=== PATIENT | male | born 1965 | race African-American/Black ===

== ENCOUNTER 2016-05-08 20:06 | Inpatient (IN) | payer OTHER ==
[2016-05-08 20:21] VITALS: BMI 26.4
--- NOTE | 2016-05-08 20:29 | PN ---
[facility] Progress Note Note: this 51 years old male with opioid,alcohol and cocaine dependence,htn,hepatitis c,nicotine dependence and postitive ppd admitted in detox [facility] 04/14/16 to 04/19/16 admitted in rehab [facility] 04/19/16 to 05/07/16 transferred to [facility] er for chest pain 0n 05/07/16 medically clear to return to rehab for continue treatment
[2016-05-08] MEDS ORDERED: IBUPROFEN 400 MG TABLET (FP) PO PRN (20:37)
[2016-05-08] MEDS ORDERED: guaiFENesin/D-METHORPHAN HB 10 ML UNIT-DOSE CUPS PO PRN (20:37)
[2016-05-08] MEDS ORDERED: MAGNESIUM HYDROX 2400MG/30ML ORAL SUSPENSION 30 ML CUP PO PRN (20:37)
[2016-05-08] MEDS ORDERED: MAG HYDROX/AL HYDROX/SIMETH 30 ML UNIT-DOSE CUP PO PRN (20:37)
[2016-05-08] MEDS ORDERED: P-EPHED 60MG/TRIPROLIDI 2.5MG TABLET PO PRN (20:37)
[2016-05-08] MEDS ORDERED: MAGNESIUM CITRATE 300 ML BOTTLE PO PRN (20:37)
[2016-05-08] MEDS ORDERED: LOPERAMIDE HCL 2 MG CAPSULE PO PRN (20:37)
[2016-05-08] MEDS ORDERED: MENTHOL/PHENOL 1 EACH UD MM PRN (20:37)
[2016-05-08] MEDS ORDERED: diphenhydrAMINE HCL 50 MG CAPSULE PO PRN (20:37)
[2016-05-08] MEDS ORDERED: hydrOXYzine PAMOATE 50 MG CAPSULE (FP) PO PRN (20:37)
--- NOTE | 2016-05-08 20:37 | HP ---
[facility] Rehab Assess/Revision - Admission History Admitted to Rehab from: Emergency Department Date of Admission to Rehab: 05/08/16 - Vital signs Vital Signs: Vital Signs Period Temp Pulse Resp BP Sys/Stephen Pulse Ox Last 24 Hr 98.8 F 95 16 137/90 - Findings Detox History & Physical reviewed: Yes Concur with findings: Yes Comments/Additional Findings: for rehab as protol
[2016-05-08] MEDS: THIAMINE HCL 100 MG TABLET (FP) PO SCH (21:41)
[2016-05-08] MEDS: LABETALOL HCL 100 MG TABLET (FP) PO SCH (21:43)
[2016-05-09] MEDS: amLODIPine BESYLATE 10 MG TABLET (FP) PO SCH (10:25)
[2016-05-09] MEDS: LABETALOL HCL 100 MG TABLET (FP) PO SCH ×2 (10:25→21:07)
[2016-05-09] MEDS: ASPIRIN COATED 81 MG TABLET.EC PO SCH (10:25)
[2016-05-09] MEDS: PRENATAL VITAMINS W/ FOLIC ACID TABLET (FP) PO SCH (10:25)
--- NOTE | 2016-05-09 18:32 | PN ---
[facility] Progress Note Note: Psychiatry Attending's note : Readmission to [address] [place] [address]. Patient was managed at [facility]. Issues addressed : chest pain/HTN. Ultrasound Manager is asked to enter psychotropic medications' Mr Mtz is already known to this headline writer. Intervention: zoloft 50 mg po daily. vistaril 100 mg po hs Orders entered.Side effects/benefits discussed with patient. He requested to get back on these medications. Discussed with nursing staff.
[2016-05-09] MEDS: hydrOXYzine PAMOATE 50 MG CAPSULE (FP) PO SCH (21:07)
[2016-05-09] MEDS: THIAMINE HCL 100 MG TABLET (FP) PO SCH (21:07)
[2016-05-10] MEDS: PRENATAL VITAMINS W/ FOLIC ACID TABLET (FP) PO SCH (09:59)
[2016-05-10] MEDS: ASPIRIN COATED 81 MG TABLET.EC PO SCH (09:59)
[2016-05-10] MEDS: SERTRALINE HCL 50 MG TABLET (FP) PO SCH (09:59)
[2016-05-10] MEDS: amLODIPine BESYLATE 10 MG TABLET (FP) PO SCH (09:59)
[2016-05-10] MEDS: LABETALOL HCL 100 MG TABLET (FP) PO SCH ×2 (10:00→21:18)
[2016-05-10] MEDS: THIAMINE HCL 100 MG TABLET (FP) PO SCH (21:18)
[2016-05-10] MEDS: hydrOXYzine PAMOATE 50 MG CAPSULE (FP) PO SCH (21:18)
[2016-05-11] MEDS: ASPIRIN COATED 81 MG TABLET.EC PO SCH (09:29)
[2016-05-11] MEDS: PRENATAL VITAMINS W/ FOLIC ACID TABLET (FP) PO SCH (09:29)
[2016-05-11] MEDS: SERTRALINE HCL 50 MG TABLET (FP) PO SCH (09:29)
[2016-05-11] MEDS: amLODIPine BESYLATE 10 MG TABLET (FP) PO SCH (09:29)
[2016-05-11] MEDS: LABETALOL HCL 100 MG TABLET (FP) PO SCH ×2 (09:29→22:02)
--- NOTE | 2016-05-11 15:39 | HP ---
Psychiatrist Admission - Data Date of interview: 05/11/16 Admission source: [facility] Identifying data: Readmisssion to [address] for this 51 y/o AA male who started treatment on this unit on 04/20/16 after completion of detox on ,got transferred to [facility] for complaint of chest pain,medically worked up and cleared for continuation of rehabilitation at [facility]. Medical History: Significant for a history of hypertension,hepatitis C and obesity. Psychiatric History: History of one psychiatric hospitalization,in 2012,at [facility].Patient was reportedly diagnosed with MDD,Anxiety Disorder and Bipolar Disorder.Mr Mtz stopped [facility]PD care in July 2015.His medications consisted of gabapentin,prozac,sertraline,vistaril and depakote (as per records).No history of suicide attempts.He has requested to be on zoloft 50 mg po daily and vistaril 100 mg po hs. Physical/Sexual Abuse/Trauma History: Patient denies. Vital Signs: Vital Signs - 24 hr 05/11/16 05/11/16 05/11/16 00:30 03:30 06:49 Temperature 97.3 F L Pulse Rate 85 Respiratory 18 18 20 Rate Blood Pressure 115/80 05/11/16 10:00 Temperature Pulse Rate 94 H Respiratory Rate Blood Pressure 135/98 Allergies/Adverse Reactions: Allergies Allergy/AdvReac Type Severity Reaction Status Date / Time No Known Allergies Allergy Verified 05/08/16 20:52 - Substance Abuse/Tx History Hx Alcohol Use: Yes Hx Substance Use: Yes (patient states that he stopped smoking cigarettes two months ago.) Substance Use Type: Alcohol (started alcohol use at age 14.Consumes 3 x 20 oz of beer daily.Last use:04/13/16.), Cocaine (Used cocaine/crack for the first time at age 21.Spends 30-40 dollars/day.Last use :04/13/16.), Heroin (heroin use via snorting :age 34.Daily expense :100 dollars.), Marijuana (onset of abuse: age 14.Expense : 10 dollars/day.Last use was on 04/13/16.) Hx Substance Use Treatment: Yes - Admission Criteria Previous failed treatment: Yes Poor recovery environment: Yes Comorbidities: Yes Lacks judgement: Yes Mental Status Exam - Mental Status Exam Alert and Oriented to: Time, Place, Person Cognitive Function: Good Patient Appearance: Well Groomed Mood: Hopeful, Euthymic Affect: Appropriate, Normal Range Patient Behavior: Talkative, Appropriate, Cooperative Speech Pattern: Clear, Appropriate Voice Loudness: Normal Thought Process: Intact, Goal Oriented Thought Disorder: Not Present Hallucinations: Denies Suicidal Ideation: Denies Homicidal Ideation: Denies Insight/Judgement: Fair Sleep: Fair Appetite: Good Muscle strength/Tone: Normal Gait/Station: Normal Psychiatric Findings - Problem List ([place] 1, 2,3) (1) Alcohol dependence Current Visit: Yes Status: Acute (2) Cocaine dependence Current Visit: Yes Status: Chronic (3) Opioid dependence Current Visit: Yes Status: Acute (4) Nicotine dependence Current Visit: Yes Status: Chronic (5) Cannabis dependence Current Visit: Yes Status: Chronic (6) MDD (major depressive disorder) Current Visit: Yes Status: Chronic Qualifiers: Major depression episode severity: mild (7) Hepatitis C Current Visit: Yes Status: Chronic (8) PPD positive, treated Current Visit: No Status: Chronic (9) Gout Current Visit: No Status: Chronic (10) Hypertension Current Visit: Yes Status: Chronic - Initial Treatment Plan Initial Treatment Plan: Psychoeducation.Support groups.Continue sertraline and vistaril.Monitor clinical progress.
[2016-05-11] MEDS: THIAMINE HCL 100 MG TABLET (FP) PO SCH (22:02)
[2016-05-11] MEDS: hydrOXYzine PAMOATE 50 MG CAPSULE (FP) PO SCH (22:03)
[2016-05-11] MEDS: ACETAMINOPHEN 325 MG TABLET (FP) PO PRN (22:04)
[2016-05-12] MEDS: PRENATAL VITAMINS W/ FOLIC ACID TABLET (FP) PO SCH (09:28)
[2016-05-12] MEDS: amLODIPine BESYLATE 10 MG TABLET (FP) PO SCH (09:29)
[2016-05-12] MEDS: SERTRALINE HCL 50 MG TABLET (FP) PO SCH (09:29)
[2016-05-12] MEDS: ASPIRIN COATED 81 MG TABLET.EC PO SCH (09:29)
[2016-05-12] MEDS: LABETALOL HCL 100 MG TABLET (FP) PO SCH ×2 (09:29→21:25)
[2016-05-12] MEDS: THIAMINE HCL 100 MG TABLET (FP) PO SCH (21:25)
[2016-05-12] MEDS: hydrOXYzine PAMOATE 50 MG CAPSULE (FP) PO SCH (21:25)
[2016-05-12] MEDS: ACETAMINOPHEN 325 MG TABLET (FP) PO PRN (21:26)
[2016-05-13] MEDS: LABETALOL HCL 100 MG TABLET (FP) PO SCH ×2 (10:05→21:16)
[2016-05-13] MEDS: ASPIRIN COATED 81 MG TABLET.EC PO SCH (10:05)
[2016-05-13] MEDS: SERTRALINE HCL 50 MG TABLET (FP) PO SCH (10:05)
[2016-05-13] MEDS: PRENATAL VITAMINS W/ FOLIC ACID TABLET (FP) PO SCH (10:05)
[2016-05-13] MEDS: amLODIPine BESYLATE 10 MG TABLET (FP) PO SCH (10:05)
--- NOTE | 2016-05-13 17:21 | PN ---
Psychiatric Progress Note Vital Signs: Vital Signs Period Temp Pulse Resp BP Sys/Stephen Pulse Ox Last 24 Hr 97.9 F 83-106 18-20 136-142/89-90 Date of Session: 05/13/16 Chief Complaint:: Discharge visit HPI: Patient addressed Alcohol,Cocaine,Opioid and Cannabis dependence comorbid with MDD. ROS: Significant for Hep C,HTN. Current Medications: Active Medications Generic Name Dose Route Start Last Admin Trade Name Freq PRN Reason Stop Dose Admin Acetaminophen 650 mg 05/08/16 20:37 05/12/16 21:26 Tylenol - PO 650 mg Q4H PRN Administration FEVER OR PAIN Al Hydroxide/Mg Hydroxide 30 ml 05/08/16 20:37 Mylanta Oral Suspension - PO Q6H PRN DYSPEPSIA Amlodipine Besylate 10 mg 05/09/16 10:00 05/13/16 10:05 Norvasc - PO 10 mg DAILY LEVI Administration Aspirin 81 mg 05/09/16 10:00 05/13/16 10:05 Ecotrin - PO 81 mg DAILY LEVI Administration Diphenhydramine HCl 50 mg 05/08/16 20:37 Benadryl - PO HSMR1 PRN FOR ITCHING Eucalyptus/Menthol/Phenol/Sorbitol 1 each 05/08/16 20:37 Cepastat Lozenge - MM Q4H PRN SORE THROAT Guaifenesin 10 ml 05/08/16 20:37 Robitussin Dm - PO Q6H PRN COUGH Hydroxyzine Pamoate 50 mg 05/08/16 20:37 05/08/16 21:43 Vistaril - PO 50 mg Q4H PRN Administration AGITATION Hydroxyzine Pamoate 100 mg 05/09/16 22:00 05/12/16 21:25 Vistaril - PO 100 mg HS LEVI Administration Labetalol HCl 100 mg 05/08/16 22:00 05/13/16 10:05 Normodyne - PO 100 mg BID LEVI Administration Loperamide HCl 4 mg 05/08/16 20:37 Imodium - PO Q6H PRN DIARRHEA Magnesium Hydroxide 30 ml 05/08/16 20:37 Milk Of Magnesia - PO DAILY PRN CONSTIPATION Multivit/Folic Acid/Iron 1 tab 05/09/16 10:00 05/13/16 10:05 Vitamins (Sjr) - PO 1 tab DAILY LEVI Administration Pseudoephedrine/Triprolidine 1 combo 05/08/16 20:37 Actifed - PO TID PRN NASAL CONGESTION Sertraline HCl 50 mg 05/10/16 10:00 05/13/16 10:05 Zoloft - PO 50 mg DAILY LEVI Administration Thiamine HCl 100 mg 05/08/16 22:00 05/12/16 21:25 Vitamin B1 - PO 100 mg HS LEVI Administration Current Side Effect: No Lab tests ordered: No Lab tests reviewed: Yes Provider note:: Patient will complete this program tomorrow 05/14/2016.He has met his treatment goals and will continue to address his issues on outpatient basis at [facility] [place].Patient continues to find that Zoloft 50 mg po daily help to reduce his anxiety and depressed mood.script for 30 days supply provided. Therapy provided focusing on relapse prevention,coping skills,support system utilization to maintain recovery. Patient is stable for discharge tomorrow 05/14/16. Total face to face time:: 30 Mental Status Exam - Mental Status Exam Alert and Oriented to: Time, Place, Person Cognitive Function: Grossly Intact Patient Appearance: Well Groomed Mood: Hopeful, Euthymic Affect: Mood Congruent Patient Behavior: Cooperative Speech Pattern: Clear Voice Loudness: Normal Thought Process: Intact, Goal Oriented Thought Disorder: Not Present Hallucinations: Denies Suicidal Ideation: Denies Homicidal Ideation: Denies Insight/Judgement: Fair Sleep: Fair Appetite: Good Muscle strength/Tone: Normal Gait/Station: Normal Psychiatric Treatment Plan - Problem List (1) Alcohol dependence Current Visit: Yes (2) Opioid dependence Current Visit: Yes (3) Cannabis dependence Current Visit: Yes (4) Cocaine dependence Current Visit: Yes (5) Hepatitis C Current Visit: Yes (6) Hypertension Current Visit: Yes (7) MDD (major depressive disorder) Current Visit: Yes Qualifiers: Major depression episode severity: mild
[2016-05-13] MEDS: ACETAMINOPHEN 325 MG TABLET (FP) PO PRN (21:15)
[2016-05-13] MEDS: THIAMINE HCL 100 MG TABLET (FP) PO SCH (21:16)
[2016-05-13] MEDS: hydrOXYzine PAMOATE 50 MG CAPSULE (FP) PO SCH (21:16)
[2016-05-14 06:57] VITALS: BP 123/92; PULSE 77; TEMP 97.3
[2016-05-14] MEDS: amLODIPine BESYLATE 10 MG TABLET (FP) PO SCH (09:25)
[2016-05-14] MEDS: PRENATAL VITAMINS W/ FOLIC ACID TABLET (FP) PO SCH (09:25)
[2016-05-14] MEDS: LABETALOL HCL 100 MG TABLET (FP) PO SCH (09:25)
[2016-05-14] MEDS: ASPIRIN COATED 81 MG TABLET.EC PO SCH (09:25)
[2016-05-14] MEDS: SERTRALINE HCL 50 MG TABLET (FP) PO SCH (09:25)
== END 2016-05-14 10:15 | disposition home or self-care (01) | DRG 772 ==
LOC: YASAS 20:06 → Y5N 20:24
PROVIDERS: ADMIT Psychiatry & Neurology Psychiatry; ATTEND Psychiatry & Neurology Psychiatry
PROC: HZ42ZZZ Group Counseling for Substance Abuse Treatment, Cognitive-Behavioral (ICD-10-PCS; principal; 2016-05-09)
DX: F11.23 Opioid dependence with withdrawal (principal); F14.20 Cocaine dependence, uncomplicated; F12.20 Cannabis dependence, uncomplicated; F33.9 Major depressive disorder, recurrent, unspecified; I10 Essential (primary) hypertension; B18.2 Chronic viral hepatitis C; M10.9 Gout, unspecified; R10.9 Unspecified abdominal pain; Z87.891 Personal history of nicotine dependence